=== PATIENT | female | born 1955 | race Caucasian/White ===

== ENCOUNTER → 2016-09-12 16:44 | Outpatient (CLI) | payer OTHER ==
[2014-02-11 08:23] VITALS: BMI 43.0
[~2016-09-12 16:44] MED LIST: ASPIRIN 81 MG E81 MG PO; CARAFATE1 G PO; FISH OIL 1,2001 CA1 PO; GARLIC1 CAP PO; GLUCOPHAGE1000 MG PO; GLUCOPHAGE500 MG PO; IMDUR30 MG PO; LASIX20 MG PO; LEXAPRO5 MG PO; MAG-OX 400 MG400 MG PO; MAGNESIUM CITRATE; METAMUCIL PACKE1 PKT PO; MULTIPLE VITAMI1 TA1 PO; PLAVIX75 MG PO; POTASSIUM99 M1 PO; PRAVACHOL40 MG PO; PREVACID15 MG PO; STOOL SOFTENER240 MG PO
== END | disposition home or self-care (01) ==
LOC: D.MAMMO
DX: Z12.31 Encounter for screening mammogram for malignant neoplasm of breast (principal)

== ENCOUNTER → 2017-10-31 17:34 | Outpatient (CLI) | payer OTHER ==
[2014-02-11 08:23] VITALS: BMI 43.0
== END | disposition home or self-care (01) ==
LOC: D.MAMMO 08:00
DX: Z12.31 Encounter for screening mammogram for malignant neoplasm of breast (principal)

== ENCOUNTER 2017-11-10 19:00 | Outpatient (CLI) | payer OTHER ==
[2014-02-11 08:23] VITALS: BMI 43.0
== END 2017-11-10 23:59 | disposition home or self-care (01) ==
LOC: D.MAMMO 19:00
DX: R92.8 Other abnormal and inconclusive findings on diagnostic imaging of breast (principal)

== ENCOUNTER → 2017-11-13 08:49 | Outpatient (CLI) | payer OTHER ==
[2014-02-11 08:23] VITALS: BMI 43.0
== END | disposition home or self-care (01) ==
LOC: D.NM 08:49
DX: R10.9 Unspecified abdominal pain (principal)